=== PATIENT | male | born 1995 | race Caucasian/White ===

== ENCOUNTER 2021-07-03 09:53 | Outpatient (REF) | payer OTHER, SELFPAY ==
--- NOTE | ~2021-07-03 | XR_ITS ---
EXAMINATION: XR LUMBAR SPINE XR ANKLE, LEFT CLINICAL INFORMATION: Trauma. COMPARISON: 06/08/2018 TECHNIQUE: Three views of the lumbosacral spine and three views of the left ankle. LUMBAR SPINE: Three views of the lumbosacral spine show mild scoliosis convex left. There is no listhesis or compression injury. No significant degenerative change. The SI joints are grossly patent. No fracture line is seen. LEFT ANKLE: Three views of left ankle do not demonstrate evidence for fracture or dislocation. The mortise is grossly intact. Mild degeneration at the insertion of the Achilles. XR/XR lumbar spine 2-3V IMPRESSION: No acute bony finding in the lumbar spine or left ankle.
--- NOTE | ~2021-07-03 | XR_ITS ---
EXAMINATION: XR LUMBAR SPINE XR ANKLE, LEFT CLINICAL INFORMATION: Trauma. COMPARISON: 06/08/2018 TECHNIQUE: Three views of the lumbosacral spine and three views of the left ankle. LUMBAR SPINE: Three views of the lumbosacral spine show mild scoliosis convex left. There is no listhesis or compression injury. No significant degenerative change. The SI joints are grossly patent. No fracture line is seen. LEFT ANKLE: Three views of left ankle do not demonstrate evidence for fracture or dislocation. The mortise is grossly intact. Mild degeneration at the insertion of the Achilles. XR/XR ankle LT min 3V IMPRESSION: No acute bony finding in the lumbar spine or left ankle.
== END 2021-07-03 09:54 | disposition home or self-care (01) ==
LOC: HO.XRAY 09:53
PROVIDERS: PCP Nurse Practitioner Acute Care; Visit Provider Nurse Practitioner Acute Care
DX: M54.50 Low back pain, unspecified (principal); M25.572 Pain in left ankle and joints of left foot; V49.50XA Passenger injured in collision with unspecified motor vehicles in traffic accident, initial encounter
CPT/HCPCS: 72100; 73610